=== PATIENT | female | born 1990 | race Caucasian/White ===

== ENCOUNTER 2024-03-24 17:46 | Outpatient (CLI) | payer OTHER, SELFPAY | END 2024-03-24 17:47 | disposition home or self-care (01) | PROVIDERS: PCP Family Medicine; Visit Provider Registered Nurse | DX: F41.9 Anxiety disorder, unspecified (principal) | CPT/HCPCS: 80048; 84443 ==

== ENCOUNTER 2024-06-04 08:58 | Outpatient (CLI) | payer OTHER, SELFPAY | END 2024-06-04 08:59 | disposition home or self-care (01) | PROVIDERS: PCP Registered Nurse; Visit Provider Registered Nurse | DX: Z13.220 Encounter for screening for lipoid disorders (principal); Z13.1 Encounter for screening for diabetes mellitus | CPT/HCPCS: 80061; 82947; 87624 ==